=== PATIENT | female | born 1960 | race Caucasian/White ===

== ENCOUNTER → 2021-03-01 | Day surgery (SDC) | payer OTHER ==
[~2021-03-01] MED LIST: DEXAMETHASONE SOD PHOS 10 MG/1 ML VIAL ONE; FENTANYL CITRATE/PF 100MCG/2 ML INJ ONE; IOPAMIDOL 200 MG/ML 20 ML VIAL IT ONE; LIDOCAINE HCL 1% 30ML-PF VIAL ONE; MIDAZOLAM HCL 2 MG/2 ML VIAL ONE; POVIDONE IODINE 0.05% 0.05 % ML PO ONE; PROPOFOL IV EMULSION 10 MG/ML 20 ML VIAL ONE; SIMVASTATIN20 MG PO
[2021-03-01 09:05] VITALS: BP 117/73
== END | disposition home or self-care (01) ==
LOC: OR 08:00
PROVIDERS: ATTEND Physical Medicine & Rehabilitation Pain Medicine
DX: M54.12 Radiculopathy, cervical region (principal); M47.812 Spondylosis without myelopathy or radiculopathy, cervical region; E78.00 Pure hypercholesterolemia, unspecified; Z01.810 Encounter for preprocedural cardiovascular examination
CPT/HCPCS: 64479; 64480; 93005; J1100; J2001; J2250; J2704; J3010; Q9967; 77003

== ENCOUNTER → 2021-05-03 | Day surgery (SDC) | payer OTHER ==
[~2021-05-03] MED LIST changes: -FENTANYL CITRATE/PF 100MCG/2 ML INJ ONE; -MIDAZOLAM HCL 2 MG/2 ML VIAL ONE; +PANTOPRAZOLE SO40 MG PO; -POVIDONE IODINE 0.05% 0.05 % ML PO ONE; -PROPOFOL IV EMULSION 10 MG/ML 20 ML VIAL ONE
[2021-05-03 08:32] VITALS: BP 131/77
== END | disposition home or self-care (01) ==
LOC: OR 06:28
PROVIDERS: ATTEND Physical Medicine & Rehabilitation Pain Medicine
DX: M54.16 Radiculopathy, lumbar region (principal); M54.12 Radiculopathy, cervical region; M47.812 Spondylosis without myelopathy or radiculopathy, cervical region; E78.00 Pure hypercholesterolemia, unspecified; K21.9 Gastro-esophageal reflux disease without esophagitis; F17.210 Nicotine dependence, cigarettes, uncomplicated; Z01.812 Encounter for preprocedural laboratory examination; Z20.822 Contact with and (suspected) exposure to COVID-19
CPT/HCPCS: 64483; 64484; J1100; J2001; Q9967; U0002; 77003

== ENCOUNTER → 2021-06-07 | Day surgery (SDC) | payer OTHER ==
[~2021-06-07] MED LIST changes: +BUPIVACAINE 0.25% 30ML SDV ONE; +FENTANYL CITRATE/PF 100MCG/2 ML INJ ONE; +LIDOCAINE HCL 2% LOCAL INJ 5 ML SDV VIAL INJ ONE; +MIDAZOLAM HCL 2 MG/2 ML VIAL ONE; +POVIDONE IODINE 0.05% 0.05 % ML PO ONE; +PROPOFOL IV EMULSION 10 MG/ML 20 ML VIAL ONE
[2021-06-07 07:05] VITALS: BP 119/75
== END | disposition home or self-care (01) ==
LOC: OR 05:38
PROVIDERS: ATTEND Physical Medicine & Rehabilitation Pain Medicine
DX: M54.16 Radiculopathy, lumbar region (principal); M54.12 Radiculopathy, cervical region; M47.812 Spondylosis without myelopathy or radiculopathy, cervical region; G47.33 Obstructive sleep apnea (adult) (pediatric); E78.00 Pure hypercholesterolemia, unspecified; K21.9 Gastro-esophageal reflux disease without esophagitis; F17.210 Nicotine dependence, cigarettes, uncomplicated; Z01.812 Encounter for preprocedural laboratory examination; Z20.822 Contact with and (suspected) exposure to COVID-19
CPT/HCPCS: 64483; 64484 ×2; J1100; J2001 ×2; J2250; J2704; J3010; Q9967; U0002; 77003

== ENCOUNTER 2025-03-25 22:07 | Inpatient (IN) | payer MEDICARE, OTHER ==
[~2025-03-25] VITALS: Ht 167.6 cm; Wt 72.6 kg
[~2025-03-25 22:07] MED LIST changes: -BUPIVACAINE 0.25% 30ML SDV ONE; -DEXAMETHASONE SOD PHOS 10 MG/1 ML VIAL ONE; -FENTANYL CITRATE/PF 100MCG/2 ML INJ ONE; -IOPAMIDOL 200 MG/ML 20 ML VIAL IT ONE; -LIDOCAINE HCL 1% 30ML-PF VIAL ONE; -LIDOCAINE HCL 2% LOCAL INJ 5 ML SDV VIAL INJ ONE; -MIDAZOLAM HCL 2 MG/2 ML VIAL ONE; -POVIDONE IODINE 0.05% 0.05 % ML PO ONE; -PROPOFOL IV EMULSION 10 MG/ML 20 ML VIAL ONE
[2025-03-25] MEDS: SODIUM CHLORIDE 0.9% 1000ML 2,180 ML IV SCH (22:59)
[2025-03-25] MEDS: ACETAMINOPHEN 1000 MG/100 ML IV ONE (23:00)
[2025-03-25 23:13] LABS: BASOPHILS % 0.5 % (0.0-1.0); EOSINOPHILS % 0.0 % (0.0-6.0); LYMPHOCYTES % 2.4 % (18.0-39.1); MONOCYTES % 7.9 % (4.4-11.3); NEUTROPHILS % 88.3 % (38.7-80.0); RED CELL DISTRIBUTION WIDTH 13.8 % (11.7-14.4)
[2025-03-25] MEDS: ONDANSETRON HCL INJ 2MG/ML 2ML 2 MG/ML VIAL IV STA (23:33)
[2025-03-25 23:34] LABS: EST GLOMERULAR FILTRATION RATE 34.0 ML/MIN (>=60)
[2025-03-25 23:50] LABS: INR 0.9
[2025-03-26] VITALS (9 sets, daily range): BP systolic 109–125; BP diastolic 72–83; PULSE 114–120; RESP 17–22; TEMP 97.9–99.6; O2SAT 91–98
[2025-03-26] MEDS ORDERED: SODIUM CHLORIDE 0.9% 1000ML 1,000 ML ONE (00:04)
[2025-03-26] MEDS ORDERED: SODIUM CHLORIDE 0.9% 250ML 250 ML ONE (00:04)
[2025-03-26] MEDS: Morphine 2mg Syringe 2 MG/ML SYR IV ONE (00:37)
[2025-03-26] MEDS: SODIUM CHLORIDE 0.9% 1000ML 1,000 ML IV SCH (02:27)
[2025-03-26] MEDS: METRONIDAZOLE 500MG/NS 100ML 100 ML IV SCH (02:28)
[2025-03-26] MEDS: ONDANSETRON HCL INJ 2MG/ML 2ML 2 MG/ML VIAL IV PRN (03:58)
[2025-03-26] MEDS: Morphine 4mg INJECTION 4 MG/ML INJ IV PRN (03:58)
[2025-03-26 04:25] LABS: LEUKOCYTE ESTERASE ,URINE NEGATIVE (NEGATIVE); PROTEIN,URINE DIPSTICK 1+ (NEGATIVE); URINE UROBILINOGEN 0.2 mg/dL (0.2 - 1)
[2025-03-26 05:01] LABS: EPITHELIAL CELLS,URINE MODERATE /LPF
[2025-03-26 10:55] LABS: BAND NEUTROPHILS % (MANUAL) 2 %; LYMPHOCYTES % (MANUAL) 7 % (19-48); MONOCYTES % (MANUAL) 1 % (3.4-9.0); NEUTROPHILS % (MANUAL) 90 % (40-74)
[2025-03-26 10:56] LABS: PLATELET ESTIMATE ADEQUATE; PLATELET MORPHOLOGY COMMENT NORMAL; RBC MORPHOLOGY COMMENT NORMAL
[2025-03-26] MEDS: LACTATED RINGER'S 1,000 ML INJ SCH (14:31)
[2025-03-26 14:59] LABS: ABG BASE EXCESS -2.0 mmol/L (-2 - 3); ABG HCO3 22 mmol/L (22-26); ABG OXYGEN SATURATION 96.0 % (95-98); ABG PCO2 33 mmHg (35-45); ABG PH 7.44 (7.35-7.45); ABG PO2 75 mmHg (80-105); ABG TCO2 23
[2025-03-26 16:32] LABS: RED CELL DISTRIBUTION WIDTH 14.0 % (11.7-14.4)
[2025-03-26 16:53] LABS: EST GLOMERULAR FILTRATION RATE 90.0 ML/MIN (>=60)
[2025-03-26 18:19] LABS: BAND NEUTROPHILS % (MANUAL) 8 %; LYMPHOCYTES % (MANUAL) 10 % (19-48); MONOCYTES % (MANUAL) 5 % (3.4-9.0); NEUTROPHILS % (MANUAL) 76 % (40-74); PLATELET ESTIMATE ADEQUATE; PLATELET MORPHOLOGY COMMENT NORMAL; REACTIVE LYMPHOCYTES 1
[2025-03-26] MEDS: HYDROMORPHONE 1MG/1ML INJ IV PRN (20:33)
[2025-03-26] MEDS: METOCLOPRAMIDE HCL 10 MG/2ML VIAL IV SCH (23:11)
[2025-03-27 03:16] VITALS: BP 114/73; PULSE 120; RESP 18; TEMP 97.7; O2SAT 96
[2025-03-27 08:26] LABS: BASOPHILS % 0.2 % (0.0-1.0); EOSINOPHILS % 0.0 % (0.0-6.0); LYMPHOCYTES % 2.6 % (18.0-39.1); MONOCYTES % 7.2 % (4.4-11.3); NEUTROPHILS % 89.1 % (38.7-80.0); RED CELL DISTRIBUTION WIDTH 14.8 % (11.7-14.4)
[2025-03-27 08:45] LABS: EST GLOMERULAR FILTRATION RATE 75.0 ML/MIN (>=60)
[2025-03-27 11:58] VITALS: BP 116/78; PULSE 121; RESP 20; TEMP 97.9; O2SAT 100
[2025-03-27 12:14] LABS: BAND NEUTROPHILS % (MANUAL) 56 %; LYMPHOCYTES % (MANUAL) 5 % (19-48); METAMYELOCYTES % (MANUAL) 1 % (0-0); MONOCYTES % (MANUAL) 8 % (3.4-9.0); NEUTROPHILS % (MANUAL) 30 % (40-74)
[2025-03-27 12:15] LABS: PLATELET ESTIMATE ADEQUATE; PLATELET MORPHOLOGY COMMENT NORMAL; RBC MORPHOLOGY COMMENT NORMAL
[2025-03-27 12:17] VITALS: BP 110/78; PULSE 122; RESP 20; TEMP 98.6; O2SAT 96
[2025-03-27] MEDS: ENOXAPARIN 30 MG/0.3 ML SYR SC SCH (16:47)
[2025-03-27 17:06] VITALS: BP 133/86; PULSE 121; RESP 20; TEMP 97.9; O2SAT 96
[2025-03-27 20:00] VITALS: BP 136/76; PULSE 120; RESP 18; TEMP 97.9; O2SAT 97
[2025-03-27] MEDS: BISACODYL 10 MG SUPP PR ONE (23:21)
[2025-03-28] VITALS: BP 124/73; PULSE 116; RESP 18; TEMP 99.6; O2SAT 97
[2025-03-28 07:13] LABS: RED CELL DISTRIBUTION WIDTH 14.7 % (11.7-14.4)
[2025-03-28 07:45] LABS: EST GLOMERULAR FILTRATION RATE 82.0 ML/MIN (>=60)
[2025-03-28 08:00] VITALS: BP_SYST 124; BP_SYST 131; BP_DIAS 73; BP_DIAS 80; PULSE 109; PULSE 116; RESP 18; RESP 20; TEMP 99.1; TEMP 99.6; O2SAT 96; O2SAT 97
[2025-03-28 08:00] LABS: BAND NEUTROPHILS % (MANUAL) 3 %; LYMPHOCYTES % (MANUAL) 2 % (19-48); MONOCYTES % (MANUAL) 5 % (3.4-9.0); NEUTROPHILS % (MANUAL) 90 % (40-74); PLATELET ESTIMATE ADEQUATE; PLATELET MORPHOLOGY COMMENT NORMAL
[2025-03-28 13:03] VITALS: BP 142/85; PULSE 109; RESP 18; TEMP 98.5; O2SAT 97
[2025-03-28 16:00] VITALS: BP 132/89; PULSE 109; RESP 17; TEMP 99.1; O2SAT 97
[2025-03-28 20:00] VITALS: BP 138/82; PULSE 107; RESP 18; TEMP 98.6; O2SAT 99
[2025-03-28 21:00] VITALS: BP 132/89; PULSE 109; RESP 17; TEMP 99.1; O2SAT 97
[2025-03-29 06:48] LABS: BASOPHILS % 0.2 % (0.0-1.0); EOSINOPHILS % 0.1 % (0.0-6.0); LYMPHOCYTES % 2.9 % (18.0-39.1); MONOCYTES % 6.8 % (4.4-11.3); NEUTROPHILS % 89.1 % (38.7-80.0); RED CELL DISTRIBUTION WIDTH 14.9 % (11.7-14.4)
[2025-03-29 07:18] LABS: EST GLOMERULAR FILTRATION RATE 98.0 ML/MIN (>=60)
[2025-03-29 08:31] VITALS: BP 133/83; PULSE 104; RESP 18; TEMP 97.6; O2SAT 97
[2025-03-29 10:03] LABS: BAND NEUTROPHILS % (MANUAL) 6 %; LYMPHOCYTES % (MANUAL) 1 % (19-48); MONOCYTES % (MANUAL) 4 % (3.4-9.0); NEUTROPHILS % (MANUAL) 89 % (40-74); PLATELET ESTIMATE ADEQUATE; PLATELET MORPHOLOGY COMMENT NORMAL
[2025-03-29 11:37] VITALS: BP 133/82; PULSE 109; RESP 18; TEMP 97.9; O2SAT 97
[2025-03-29] MEDS: SIMETHICONE 80 MG CHEW PO ONE (14:44)
[2025-03-29 15:47] VITALS: BP 141/84; PULSE 109; RESP 18; TEMP 98; O2SAT 100
[2025-03-29 20:00] VITALS: BP 136/82; PULSE 106; RESP 18; TEMP 97.6; O2SAT 98
[2025-03-29 21:00] VITALS: BP 136/82; PULSE 106; RESP 18; TEMP 97.6; O2SAT 98
[2025-03-30] VITALS (7 sets, daily range): BP systolic 128–145; BP diastolic 79–88; PULSE 68–115; RESP 16–18; TEMP 97.7–98.3; O2SAT 96–98
[2025-03-31] VITALS (7 sets, daily range): BP systolic 129–145; BP diastolic 75–88; PULSE 106–114; RESP 16–18; TEMP 97.6–98.4; O2SAT 95–97
[2025-03-31 04:38] LABS: CDIFF AG QUIK CHEK **POSITIVE** (NEGATIVE); CDIFF TOX QUIK CHEK NEGATIVE (NEGATIVE)
[2025-03-31 06:22] LABS: BASOPHILS % 0.3 % (0.0-1.0); EOSINOPHILS % 1.0 % (0.0-6.0); LYMPHOCYTES % 7.6 % (18.0-39.1); MONOCYTES % 7.2 % (4.4-11.3); NEUTROPHILS % 77.7 % (38.7-80.0); RED CELL DISTRIBUTION WIDTH 15.2 % (11.7-14.4)
[2025-03-31 06:46] LABS: EST GLOMERULAR FILTRATION RATE 101.0 ML/MIN (>=60)
[2025-03-31 12:28] LABS: BAND NEUTROPHILS % (MANUAL) 3 %; LYMPHOCYTES % (MANUAL) 8 % (19-48); METAMYELOCYTES % (MANUAL) 1 % (0-0); MONOCYTES % (MANUAL) 1 % (3.4-9.0); NEUTROPHILS % (MANUAL) 87 % (40-74)
[2025-03-31 12:36] LABS: PLATELET ESTIMATE ADEQUATE; PLATELET MORPHOLOGY COMMENT NORMAL; RBC MORPHOLOGY COMMENT NORMAL
[2025-03-31] MEDS: VANCOMYCIN HCL 125 MG CAPSULE PO SCH (17:27)
[2025-04-01 01:06] VITALS: BP 134/78; PULSE 118; RESP 18; TEMP 97.9; O2SAT 95
[2025-04-01] MEDS ORDERED: IOPAMIDOL 370 MG/ML 100 ML INFUS..BTL INJ ONE (05:43)
[2025-04-01 07:09] LABS: BASOPHILS % 0.6 % (0.0-1.0); EOSINOPHILS % 1.1 % (0.0-6.0); LYMPHOCYTES % 6.7 % (18.0-39.1); MONOCYTES % 5.3 % (4.4-11.3); NEUTROPHILS % 80.0 % (38.7-80.0); RED CELL DISTRIBUTION WIDTH 15.3 % (11.7-14.4)
[2025-04-01 07:15] LABS: EST GLOMERULAR FILTRATION RATE 102.0 ML/MIN (>=60)
[2025-04-01 08:00] VITALS: BP 122/75; PULSE 114; RESP 19; TEMP 98.3; O2SAT 98
[2025-04-01 08:57] VITALS: BP 122/75; PULSE 114; RESP 19; TEMP 98.3; O2SAT 98
[2025-04-01 10:49] LABS: EOSINOPHILS % (MANUAL) 2 % (0-7); LYMPHOCYTES % (MANUAL) 8 % (19-48); METAMYELOCYTES % (MANUAL) 1 % (0-0); MONOCYTES % (MANUAL) 6 % (3.4-9.0); MYELOCYTES % (MANUAL) 2 % (0-0); NEUTROPHILS % (MANUAL) 81 % (40-74); PLATELET ESTIMATE ADEQUATE; PLATELET MORPHOLOGY COMMENT NORMAL; RBC MORPHOLOGY COMMENT NORMAL
[2025-04-01 12:00] VITALS: BP 137/80; PULSE 116; RESP 19; TEMP 98.2; O2SAT 98
[2025-04-01 16:00] VITALS: BP 127/76; PULSE 115; RESP 19; TEMP 99; O2SAT 99
[2025-04-01] MEDS: SODIUM CHLORIDE 0.9% 1000ML 1,000 ML IV SCH (17:32)
[2025-04-01 17:48] LABS: BASOPHILS % 0.4 % (0.0-1.0); EOSINOPHILS % 0.5 % (0.0-6.0); LYMPHOCYTES % 6.1 % (18.0-39.1); MONOCYTES % 5.9 % (4.4-11.3); NEUTROPHILS % 81.9 % (38.7-80.0); RED CELL DISTRIBUTION WIDTH 15.4 % (11.7-14.4)
[2025-04-01 17:55] LABS: EST GLOMERULAR FILTRATION RATE 101.0 ML/MIN (>=60)
[2025-04-01] MEDS: HEPARIN SOD (PORCINE) 1000 UNIT/ML SDV IV ONE (18:20)
[2025-04-01] MEDS: HEPARIN 25,000 UNIT/D5W 250ML 250 ML IV SCH (18:25)
[2025-04-01 20:27] VITALS: BP 118/75; PULSE 122; RESP 18; TEMP 97.8; O2SAT 98
[2025-04-06 06:35] LABS: ABG BASE EXCESS -2.0 mmol/L (-2 - 3); ABG HCO3 22 mmol/L (22-26); ABG OXYGEN SATURATION 96.0 % (95-98); ABG PCO2 32 mmHg (35-45); ABG PH 7.44 (7.35-7.45); ABG PO2 75 mmHg (80-105); ABG TCO2 23
== END 2025-04-01 22:41 | disposition other institution (70) | DRG 871 ==
LOC: ER 03-26 00:32 → ERHOLD 03-26 02:12 → MED/SURG 03-26 08:56 → MED/SURG2 03-26 09:28
PROVIDERS: ADMIT Internal Medicine; ATTEND Internal Medicine
PROC: 4A033B1 Measurement of Arterial Pressure, Peripheral, Percutaneous Approach (ICD-10-PCS; principal; 2025-03-26)
PROC: 0D9670Z Drainage of Stomach with Drainage Device, Via Natural or Artificial Opening (ICD-10-PCS; 2025-03-26)
DX: A41.9 Sepsis, unspecified organism (principal); K55.059 Acute (reversible) ischemia of intestine, part and extent unspecified; R65.21 Severe sepsis with septic shock; K55.069 Acute infarction of intestine, part and extent unspecified; A04.9 Bacterial intestinal infection, unspecified; K56.600 Partial intestinal obstruction, unspecified as to cause; N17.9 Acute kidney failure, unspecified; E87.20 Acidosis, unspecified; K21.9 Gastro-esophageal reflux disease without esophagitis; E78.5 Hyperlipidemia, unspecified; D72.829 Elevated white blood cell count, unspecified; R73.9 Hyperglycemia, unspecified; I10 Essential (primary) hypertension; E86.0 Dehydration; M19.90 Unspecified osteoarthritis, unspecified site; B96.89 Other specified bacterial agents as the cause of diseases classified elsewhere; Z87.891 Personal history of nicotine dependence
CPT/HCPCS: 36415; 36600; 71045; 74018; 74019; 74176; 74178; 80048; 80053; 81001; 82550; 82805; 83036; 83605; 83630; 83690; 83993; 84443; 84484; 85007; 85025; 85027; 85610; 85730; 87040; 87045; 87086; 87177; 87324; 87449; 93005; 93306; 99284; J0692; J1171; J1644; J1650; J2270; J2405; J2470; J2543; J2765; J7030; J7050; Q9967